=== PATIENT | female | born 1960 | race Caucasian/White ===

== ENCOUNTER 2017-12-19 12:19 | Emergency (ER) | payer OTHER, SELFPAY ==
[~2017-12-19] VITALS: Ht 175.3 cm; Wt 95.2 kg
[~2017-12-19 12:19] MED LIST: ACET325 PO; ALBU90OI6 INH; ALBUTEROL; ATOR20 PO; Aspirin EC81 MG; BUPR150ER PO; BUPR150T2 PO; Bactrim Ds Tab1 EACH PO; CEPH500 PO; CITA20; CITA20 PO; COMBIVENT RESPIM4 GM IH; CYCL10 PO; Citalopram HBr40 MG PO; Crutch1 EACH MISC; DIAZ2 PO; DIAZ5 PO; DOXY100 PO; Desyrel PO; FAMO20 PO; FAMO40 PO; FLUO10 PO; GABA100 PO; GABA300 PO; GUAI600T33 PO; HYDACE5 PO; HYDACE5325 PO; HYDPAM25 PO; IBUHYD PO; IBUP200 PO; IBUP800 PO; IBUPROFEN; KETO10 PO; Keflex500 MG PO; LEFL20 PO; LISI5 PO; MEDR150I IM; MELA3 PO; MELO7.5 PO; METO10 PO; METTREX2.5 PO; Mobic7.5 MG PO; NAPR220 PO; NAPR500 PO; NAPR550 PO; NEOPOLHCSU OT; Norco 5-325 Ta1 EACH PO; ONDA4ODT MM; OXYACE5T PO; OXYB5 PO; OXYB5ER PO; OXYC10TA19; OXYC5 PO; Omeprazole20 M1 PO; PENVK500 PO; PROC10 PO; PROM25 PO; PROP65 PO; Protonix40 MG PO; RESPERIDONE PO; RESTLESS LEG MED; ROPI1 PO; ROPI2 PO; RXCYCL10 PO; RXDIPATR PO; SERT100 PO; SERT50 PO; SULTRIDS PO; TEMA7.5 PO; TRAM50 PO; TRAZ100 PO; VARE1 PO; VICOPROFEN 2001 EACH PO; VITAMIN D 3
[2017-12-19] MEDS ORDERED: LIDO700A20 TOP (13:19)
== END 2017-12-19 13:38 | disposition home or self-care (01) ==
LOC: ER 12:19
DX: S20.211A Contusion of right front wall of thorax, initial encounter (principal); J44.9 Chronic obstructive pulmonary disease, unspecified; F17.200 Nicotine dependence, unspecified, uncomplicated; Z88.5 Allergy status to narcotic agent; Z88.1 Allergy status to other antibiotic agents; Z91.018 Allergy to other foods; Z88.8 Allergy status to other drugs, medicaments and biological substances; Z91.048 Other nonmedicinal substance allergy status; Z79.899 Other long term (current) drug therapy; Z79.82 Long term (current) use of aspirin; W01.0XXA Fall on same level from slipping, tripping and stumbling without subsequent striking against object, initial encounter
CPT/HCPCS: 71046; 99283

== ENCOUNTER 2018-02-26 17:06 | Emergency (ER) | payer OTHER ==
[~2018-02-26] VITALS: Ht 172.7 cm; Wt 90.7 kg
[~2018-02-26 17:06] MED LIST changes: +LIDO700A20 TOP
== END 2018-02-26 19:37 | disposition home or self-care (01) ==
LOC: ER 17:06
DX: S93.402A Sprain of unspecified ligament of left ankle, initial encounter (principal); S83.92XA Sprain of unspecified site of left knee, initial encounter; M79.674 Pain in right toe(s); W10.9XXA Fall (on) (from) unspecified stairs and steps, initial encounter; Z88.5 Allergy status to narcotic agent; Z88.1 Allergy status to other antibiotic agents; Z91.048 Other nonmedicinal substance allergy status; Z79.899 Other long term (current) drug therapy; Z79.82 Long term (current) use of aspirin; J44.9 Chronic obstructive pulmonary disease, unspecified; F17.200 Nicotine dependence, unspecified, uncomplicated
CPT/HCPCS: 73564; 73610; 73630; 99283-25

== ENCOUNTER 2018-04-11 08:37 | Emergency (ER) | payer OTHER ==
[~2018-04-11] VITALS: Ht 172.7 cm; Wt 90.7 kg
[2018-04-11] MEDS ORDERED: Roxicodone5 MG PO (10:34)
[2018-04-11] MEDS ORDERED: Zithromax250 MG PO (10:34)
== END 2018-04-11 11:28 | disposition home or self-care (01) ==
LOC: ER 08:37
DX: S70.02XA Contusion of left hip, initial encounter (principal); R07.89 Other chest pain; J44.9 Chronic obstructive pulmonary disease, unspecified; F17.210 Nicotine dependence, cigarettes, uncomplicated; Z88.5 Allergy status to narcotic agent; Z88.1 Allergy status to other antibiotic agents; Z91.018 Allergy to other foods; Z88.8 Allergy status to other drugs, medicaments and biological substances; Z91.048 Other nonmedicinal substance allergy status; Z79.899 Other long term (current) drug therapy; Z79.82 Long term (current) use of aspirin; W19.XXXA Unspecified fall, initial encounter
CPT/HCPCS: 71101; 73502; 99284-25

== ENCOUNTER 2019-01-15 12:25 | Emergency (ER) | payer MEDICARE ==
[~2019-01-15] VITALS: Ht 172.7 cm; Wt 79.4 kg
[~2019-01-15 12:25] MED LIST changes: +Roxicodone5 MG PO; +Zithromax250 MG PO
[2019-01-15 13:06] LABS: BASOPHILS ABSOLUTE AUTO 0.04 K/mm3 (0.00-0.23); BASOPHILS PERCENT AUTO 1 % (0-2); EOSINOPHILS ABSOLUTE AUTO 0.07 K/mm3 (0.00-0.68); EOSINOPHILS PERCENT AUTO 1 % (0-6); Hematocrit 40.3 % (33.0-51.0); Hemoglobin 12.9 g/dL (11.5-16.0); IMMATURE GRAN ABSOLUTE AUTO 0.02 K/mm3 (0.00-0.10); IMMATURE GRAN PERCENT AUTO 0 % (0-1); LYMPHOCYTES ABSOLUTE AUTO 2.07 K/mm3 (0.84-5.20); LYMPHOCYTES PERCENT AUTO 35 % (21-46); MONOCYTES ABSOLUTE AUTO 0.54 K/mm3 (0.16-1.47); MONOCYTES PERCENT AUTO 9 % (4-13); Mean Corpuscular HGB 30.5 pg (26.0-34.0); Mean Corpuscular Volume 95 fL (80-100); Mean Platelet Volume 9.9 fL (9.1-12.4); NEUTROPHILS ABSOLUTE AUTO 3.23 K/mm3 (1.96-9.15); NEUTROPHILS PERCENT AUTO 54 % (41-73); Platelet Count 278 K/mm3 (150-400); RDW Coefficient Variation 13.7 % (11.7-14.2); RDW Standard Deviation 48.5 fL (35.1-46.3); Red Blood Cell Count 4.23 M/mm3 (3.80-5.20); White Blood Cell Count 5.97 K/mm3 (4.00-11.30)
[2019-01-15 13:28] LABS: Alanine Aminotransfer (ALT/SGP 23 U/L (12-78); Albumin, Blood 3.3 g/dL (3.4-5.0); Albumin/Globulin Ratio 0.8 (0.8-1.8); Alk Phos 105 U/L (50-136); Anion Gap 4 mmol/L (6-16); Aspartate Aminotrans (AST/SGOT 29 U/L (12-37); Bilirubin, Total 0.2 mg/dL (0.1-1.0); Blood Urea Nitrogen 14 mg/dL (8-24); Bun/Creatinine Ratio 19.2 (12.0-20.0); CO2, Blood 29 mmol/L (21-32); Chloride, Blood 107 mmol/L (98-108); Creatinine, Blood 0.73 mg/dL (0.40-1.00); Globulin, Blood 4.2 g/dL (2.2-4.0); Glomerular Filtration Rate >60 (60-); Glucose, Blood 117 mg/dL (70-99); Potassium, Blood 3.8 mmol/L (3.5-5.5); Sodium, Blood 140 mmol/L (136-145); Total Protein, Blood 7.5 g/dL (6.4-8.2)
[2019-01-15] MEDS ORDERED: NAPR550 PO (13:48)
== END 2019-01-15 13:55 | disposition home or self-care (01) ==
LOC: ER 12:25
PROVIDERS: Physician Assistant
DX: S09.90XA Unspecified injury of head, initial encounter (principal); W22.8XXA Striking against or struck by other objects, initial encounter; J44.9 Chronic obstructive pulmonary disease, unspecified; E78.5 Hyperlipidemia, unspecified; F17.210 Nicotine dependence, cigarettes, uncomplicated; Z79.899 Other long term (current) drug therapy; Z79.82 Long term (current) use of aspirin
CPT/HCPCS: 36415; 70450; 80053; 85025; 99284-25

== ENCOUNTER 2019-05-13 20:14 | Emergency (ER) | payer MEDICARE ==
[~2019-05-13] VITALS: Ht 175.3 cm; Wt 86.2 kg
[2019-05-13] MEDS ORDERED: NAPR550 PO (21:13)
== END 2019-05-13 21:27 | disposition home or self-care (01) ==
LOC: ER 20:14
DX: S30.811A Abrasion of abdominal wall, initial encounter (principal); Y04.8XXA Assault by other bodily force, initial encounter; J44.9 Chronic obstructive pulmonary disease, unspecified; E78.5 Hyperlipidemia, unspecified; F17.210 Nicotine dependence, cigarettes, uncomplicated
CPT/HCPCS: 71046; 72170; 96372; 99283-25; J1885

== ENCOUNTER 2019-05-15 14:28 | Emergency (ER) | payer MEDICARE ==
[~2019-05-15] VITALS: Ht 172.7 cm; Wt 86.2 kg
[2019-05-15] MEDS ORDERED: Ultram50 MG PO (16:03)
== END 2019-05-15 16:10 | disposition home or self-care (01) ==
LOC: ER 14:28
DX: S70.212A Abrasion, left hip, initial encounter (principal); J44.9 Chronic obstructive pulmonary disease, unspecified; E78.5 Hyperlipidemia, unspecified; F17.210 Nicotine dependence, cigarettes, uncomplicated; Z88.5 Allergy status to narcotic agent; Z88.1 Allergy status to other antibiotic agents; Z91.018 Allergy to other foods; Z91.048 Other nonmedicinal substance allergy status; Y04.2XXA Assault by strike against or bumped into by another person, initial encounter
CPT/HCPCS: 99282

== ENCOUNTER 2019-06-14 11:06 | Emergency (ER) | payer MEDICARE ==
[~2019-06-14] VITALS: Ht 172.7 cm; Wt 81.7 kg
[~2019-06-14 11:06] MED LIST changes: +Ultram50 MG PO
[2019-06-14] MEDS ORDERED: GABA100 PO (11:20)
[2019-06-14] MEDS ORDERED: Prednisone20 MG PO (12:14)
[2019-06-14] MEDS ORDERED: ROBITUSSIN COU237 ML PO (12:14)
[2019-06-14] MEDS ORDERED: Ventolin/Prove6.7 GM INH (12:14)
[2019-06-14] MEDS ORDERED: Zithromax250 MG PO (12:14)
== END 2019-06-14 12:28 | disposition home or self-care (01) ==
LOC: ER 11:06
DX: J43.9 Emphysema, unspecified (principal); E78.5 Hyperlipidemia, unspecified; M06.9 Rheumatoid arthritis, unspecified; F17.210 Nicotine dependence, cigarettes, uncomplicated; Z88.5 Allergy status to narcotic agent; Z79.899 Other long term (current) drug therapy
CPT/HCPCS: 71046; 94640; 99283-25; J7512

== ENCOUNTER 2020-04-14 13:34 | Emergency (ER) | payer MEDICARE ==
[~2020-04-14] VITALS: Ht 172.7 cm; Wt 72.1 kg
[~2020-04-14 13:34] MED LIST changes: +Prednisone20 MG PO; +ROBITUSSIN COU237 ML PO; +Ventolin/Prove6.7 GM INH
[2020-04-14] MEDS ORDERED: FLUTICASONE PRO16 GM (14:01)
[2020-04-14] MEDS ORDERED: ACYCLOVIR400 MG PO (14:01)
[2020-04-14] MEDS ORDERED: Flagyl500 MG PO (14:01)
[2020-04-14] MEDS ORDERED: FLUC150A PO (14:01)
[2020-04-14 14:36] LABS: BASOPHILS ABSOLUTE AUTO 0.04 K/mm3 (0.00-0.23); BASOPHILS PERCENT AUTO 1 % (0-2); EOSINOPHILS ABSOLUTE AUTO 0.07 K/mm3 (0.00-0.68); EOSINOPHILS PERCENT AUTO 1 % (0-6); Hematocrit 38.4 % (33.0-51.0); Hemoglobin 12.1 g/dL (11.5-16.0); IMMATURE GRAN ABSOLUTE AUTO 0.02 K/mm3 (0.00-0.10); IMMATURE GRAN PERCENT AUTO 0 % (0-1); LYMPHOCYTES PERCENT AUTO 34 % (21-46); MONOCYTES ABSOLUTE AUTO 0.58 K/mm3 (0.16-1.47); MONOCYTES PERCENT AUTO 9 % (4-13); Mean Corpuscular HGB Conc 31.5 g/dL (31.5-36.5); Mean Corpuscular Volume 95 fL (80-100); Mean Platelet Volume 9.5 fL (9.1-12.4); NEUTROPHILS PERCENT AUTO 56 % (41-73); Platelet Count 253 K/mm3 (150-400); RDW Coefficient Variation 13.6 % (11.7-14.2); RDW Standard Deviation 48.8 fL (35.1-46.3); Red Blood Cell Count 4.03 M/mm3 (3.80-5.20); White Blood Cell Count 6.81 K/mm3 (4.00-11.30)
[2020-04-14 14:58] LABS: Alanine Aminotransfer (ALT/SGP 36 U/L (12-78); Albumin, Blood 3.5 g/dL (3.4-5.0); Albumin/Globulin Ratio 0.9 (0.8-1.8); Alk Phos 73 U/L (50-136); Anion Gap 5 mmol/L (6-16); Aspartate Aminotrans (AST/SGOT 29 U/L (12-37); Bilirubin, Total 0.3 mg/dL (0.1-1.0); Blood Urea Nitrogen 14 mg/dL (8-24); Bun/Creatinine Ratio 18.8 (12.0-20.0); CO2, Blood 27 mmol/L (21-32); Calcium, Blood 8.7 mg/dL (8.5-10.1); Chloride, Blood 108 mmol/L (98-108); Creatinine, Blood 0.74 mg/dL (0.40-1.00); Globulin, Blood 3.8 g/dL (2.2-4.0); Glomerular Filtration Rate >60 (60-); Glucose, Blood 96 mg/dL (70-99); Potassium, Blood 3.6 mmol/L (3.5-5.5); Sodium, Blood 140 mmol/L (136-145); Total Protein, Blood 7.3 g/dL (6.4-8.2); Troponin I <0.015 ng/mL (0.000-0.040)
== END 2020-04-14 17:55 | disposition home or self-care (01) ==
LOC: ER 13:34
PROVIDERS: Emergency Medicine
DX: I87.8 Other specified disorders of veins (principal); J43.9 Emphysema, unspecified; F17.210 Nicotine dependence, cigarettes, uncomplicated; Z88.5 Allergy status to narcotic agent; Z88.1 Allergy status to other antibiotic agents; Z91.018 Allergy to other foods; Z88.8 Allergy status to other drugs, medicaments and biological substances; Z91.09 Other allergy status, other than to drugs and biological substances; Z79.899 Other long term (current) drug therapy
CPT/HCPCS: 36415; 71045; 80053; 83880; 84484; 85025; 93005; 93010; 99284-25

== ENCOUNTER → 2020-04-25 | Outpatient (CLI) | payer MEDICARE ==
[~2020-04-25] MED LIST changes: +ACYCLOVIR400 MG PO; +FLUC150A PO; +FLUTICASONE PRO16 GM; +Flagyl500 MG PO
== END | disposition home or self-care (01) ==
LOC: LAB SHORT 18:13 → LAB 18:13
DX: N39.0 Urinary tract infection, site not specified (principal)
CPT/HCPCS: 87077; 87086; 87186

== ENCOUNTER → 2020-09-09 | Outpatient (CLI) | payer MEDICARE ==
[~2020-09-09] MED LIST changes: +FUROSEMIDE20 MG PO; +Lasix20 MG PO; +POTASSIUM CHLORIDE E
[2020-09-09 19:57] LABS: BASOPHILS ABSOLUTE AUTO 0.04 K/mm3 (0.00-0.23); BASOPHILS PERCENT AUTO 1 % (0-2); EOSINOPHILS ABSOLUTE AUTO 0.12 K/mm3 (0.00-0.68); EOSINOPHILS PERCENT AUTO 2 % (0-6); Hematocrit 36.9 % (33.0-51.0); Hemoglobin 11.6 g/dL (11.5-16.0); IMMATURE GRAN ABSOLUTE AUTO 0.01 K/mm3 (0.00-0.10); IMMATURE GRAN PERCENT AUTO 0 % (0-1); LYMPHOCYTES ABSOLUTE AUTO 2.29 K/mm3 (0.84-5.20); LYMPHOCYTES PERCENT AUTO 44 % (21-46); MONOCYTES ABSOLUTE AUTO 0.55 K/mm3 (0.16-1.47); MONOCYTES PERCENT AUTO 11 % (4-13); Mean Corpuscular HGB 29.4 pg (26.0-34.0); Mean Corpuscular HGB Conc 31.4 g/dL (31.5-36.5); Mean Corpuscular Volume 94 fL (80-100); Mean Platelet Volume 9.9 fL (9.1-12.4); NEUTROPHILS ABSOLUTE AUTO 2.19 K/mm3 (1.96-9.15); NEUTROPHILS PERCENT AUTO 42 % (41-73); Platelet Count 304 K/mm3 (150-400); RDW Standard Deviation 44.8 fL (35.1-46.3); Red Blood Cell Count 3.94 M/mm3 (3.80-5.20)
[2020-09-09 20:19] LABS: Alanine Aminotransfer (ALT/SGP 23 U/L (12-78); Albumin, Blood 3.7 g/dL (3.4-5.0); Albumin/Globulin Ratio 0.9 (0.8-1.8); Alk Phos 105 U/L (50-136); Anion Gap 1 mmol/L (6-16); Aspartate Aminotrans (AST/SGOT 23 U/L (12-37); Bilirubin, Total 0.2 mg/dL (0.1-1.0); Blood Urea Nitrogen 15 mg/dL (8-24); Bun/Creatinine Ratio 17.9 (12.0-20.0); CO2, Blood 32 mmol/L (21-32); Calcium, Blood 8.9 mg/dL (8.5-10.1); Chloride, Blood 105 mmol/L (98-108); Creatinine, Blood 0.84 mg/dL (0.40-1.00); Glomerular Filtration Rate >60 (60-); Glucose, Blood 96 mg/dL (70-99); Potassium, Blood 3.8 mmol/L (3.5-5.5); Sodium, Blood 138 mmol/L (136-145); Total Protein, Blood 7.7 g/dL (6.4-8.2)
== END | disposition home or self-care (01) ==
LOC: LAB SHORT 18:04 → PLD 18:04
PROVIDERS: Family Medicine
DX: R07.89 Other chest pain (principal)
CPT/HCPCS: 80053; 83880; 85025

== ENCOUNTER 2020-11-14 21:15 | Emergency (ER) | payer MEDICARE ==
[~2020-11-14] VITALS: Ht 172.7 cm; Wt 72.6 kg
[~2020-11-14 21:15] MED LIST changes: -FUROSEMIDE20 MG PO; -Lasix20 MG PO; -POTASSIUM CHLORIDE E
[2020-11-14 22:39] LABS: BASOPHILS ABSOLUTE AUTO 0.03 K/mm3 (0.00-0.23); BASOPHILS PERCENT AUTO 1 % (0-2); EOSINOPHILS ABSOLUTE AUTO 0.11 K/mm3 (0.00-0.68); EOSINOPHILS PERCENT AUTO 2 % (0-6); Hematocrit 34.4 % (33.0-51.0); Hemoglobin 11.3 g/dL (11.5-16.0); IMMATURE GRAN ABSOLUTE AUTO 0.02 K/mm3 (0.00-0.10); IMMATURE GRAN PERCENT AUTO 0 % (0-1); LYMPHOCYTES ABSOLUTE AUTO 2.32 K/mm3 (0.84-5.20); LYMPHOCYTES PERCENT AUTO 43 % (21-46); MONOCYTES ABSOLUTE AUTO 0.49 K/mm3 (0.16-1.47); MONOCYTES PERCENT AUTO 9 % (4-13); Mean Corpuscular HGB 30.5 pg (26.0-34.0); Mean Corpuscular HGB Conc 32.8 g/dL (31.5-36.5); Mean Corpuscular Volume 93 fL (80-100); Mean Platelet Volume 9.7 fL (9.1-12.4); NEUTROPHILS ABSOLUTE AUTO 2.38 K/mm3 (1.96-9.15); NEUTROPHILS PERCENT AUTO 44 % (41-73); Platelet Count 288 K/mm3 (150-400); RDW Coefficient Variation 13.4 % (11.7-14.2); RDW Standard Deviation 45.8 fL (35.1-46.3); White Blood Cell Count 5.35 K/mm3 (4.00-11.30)
[2020-11-14 22:58] LABS: Alanine Aminotransfer (ALT/SGP 21 U/L (12-78); Albumin, Blood 3.5 g/dL (3.4-5.0); Albumin/Globulin Ratio 0.9 (0.8-1.8); Alk Phos 99 U/L (50-136); Anion Gap 4 mmol/L (6-16); Aspartate Aminotrans (AST/SGOT 30 U/L (12-37); Bilirubin, Total 0.3 mg/dL (0.1-1.0); Blood Urea Nitrogen 19 mg/dL (8-24); CO2, Blood 28 mmol/L (21-32); Calcium, Blood 8.8 mg/dL (8.5-10.1); Chloride, Blood 105 mmol/L (98-108); Creatinine, Blood 0.86 mg/dL (0.40-1.00); Glomerular Filtration Rate >60 (60-); Glucose, Blood 103 mg/dL (70-99); Potassium, Blood 4.1 mmol/L (3.5-5.5); Sodium, Blood 137 mmol/L (136-145); Total Protein, Blood 7.5 g/dL (6.4-8.2); Troponin I <0.015 ng/mL (0.000-0.040)
[2020-11-14] MEDS ORDERED: POTASSIUM CHLORIDE E (23:08)
[2020-11-14] MEDS ORDERED: FUROSEMIDE20 MG PO (23:08)
[2020-11-14] MEDS ORDERED: Lasix20 MG PO (23:21)
== END 2020-11-14 23:40 | disposition home or self-care (01) ==
LOC: ER 21:15
PROVIDERS: Physician Assistant
DX: R60.0 Localized edema (principal); J43.9 Emphysema, unspecified; F17.210 Nicotine dependence, cigarettes, uncomplicated; Z88.5 Allergy status to narcotic agent; Z88.1 Allergy status to other antibiotic agents; Z88.8 Allergy status to other drugs, medicaments and biological substances; Z91.09 Other allergy status, other than to drugs and biological substances; Z79.899 Other long term (current) drug therapy
CPT/HCPCS: 36415; 71046; 80053; 83880; 84484; 85025; 93005; 93010; 96374; 99284-25; J1940

== ENCOUNTER 2021-03-09 14:52 | Emergency (ER) | payer MEDICARE ==
[~2021-03-09] VITALS: Ht 175.3 cm; Wt 77.1 kg
[~2021-03-09 14:52] MED LIST changes: +FUROSEMIDE20 MG PO; +Lasix20 MG PO; +POTASSIUM CHLORIDE E
== END 2021-03-09 16:45 | disposition home or self-care (01) ==
LOC: ER 14:52
DX: S70.11XA Contusion of right thigh, initial encounter (principal); J43.9 Emphysema, unspecified; E78.5 Hyperlipidemia, unspecified; F17.210 Nicotine dependence, cigarettes, uncomplicated; Z88.5 Allergy status to narcotic agent; Z88.1 Allergy status to other antibiotic agents; Z91.018 Allergy to other foods; Z91.048 Other nonmedicinal substance allergy status; Z88.8 Allergy status to other drugs, medicaments and biological substances; Z79.899 Other long term (current) drug therapy; W19.XXXA Unspecified fall, initial encounter
CPT/HCPCS: 93971; 99283-25

== ENCOUNTER 2021-05-05 17:07 | Emergency (ER) | payer MEDICARE ==
[~2021-05-05] VITALS: Ht 170.2 cm; Wt 77.1 kg
[~2021-05-05 17:07] MED LIST changes: +BENZ100A PO; +ONDA4 PO
== END 2021-05-05 20:05 | disposition home or self-care (01) ==
LOC: ER 17:07
DX: U07.1 COVID-19 (principal); Z88.5 Allergy status to narcotic agent; Z88.8 Allergy status to other drugs, medicaments and biological substances; Z91.018 Allergy to other foods; Z91.048 Other nonmedicinal substance allergy status; Z79.899 Other long term (current) drug therapy; E78.5 Hyperlipidemia, unspecified; F17.210 Nicotine dependence, cigarettes, uncomplicated
CPT/HCPCS: 96372; 99283-25; J1885

== ENCOUNTER → 2021-06-25 | Outpatient (CLI) | payer MEDICARE | END | disposition home or self-care (01) | LOC: LAB SHORT 15:38 | DX: R30.0 Dysuria (principal) | CPT/HCPCS: 87077; 87086; 87186 ==

== ENCOUNTER 2021-07-27 03:05 | Day surgery (SDC) | payer MEDICARE | END 2021-07-27 22:44 | disposition home or self-care (01) | LOC: WOUND 03:05 | DX: T23.221A Burn of second degree of single right finger (nail) except thumb, initial encounter (principal); X08.8XXA Exposure to other specified smoke, fire and flames, initial encounter; F17.210 Nicotine dependence, cigarettes, uncomplicated; I10 Essential (primary) hypertension | CPT/HCPCS: G0463 ==

== ENCOUNTER 2021-08-03 03:21 | Day surgery (SDC) | payer MEDICARE | END 2021-08-03 23:30 | disposition home or self-care (01) | LOC: WOUND 03:21 | DX: T23.221D Burn of second degree of single right finger (nail) except thumb, subsequent encounter (principal); X58.XXXD Exposure to other specified factors, subsequent encounter | CPT/HCPCS: G0463 ==

== ENCOUNTER → 2022-02-03 | Outpatient (CLI) | payer MEDICARE, OTHER ==
[2022-02-04 15:11] LABS: HPV 16 Negative (Negative); HPV 18 Negative (Negative); HPV OTHER HR TYPES Positive (Negative)
== END | disposition home or self-care (01) ==
LOC: LAB 10:20 → LAB SHORT 10:20
PROVIDERS: Nurse Practitioner Family
DX: Z11.51 Encounter for screening for human papillomavirus (HPV) (principal); Z12.4 Encounter for screening for malignant neoplasm of cervix
CPT/HCPCS: 87624; G0123

== ENCOUNTER 2022-09-11 18:42 | Emergency (ER) | payer MEDICARE, OTHER ==
[~2022-09-11] VITALS: Ht 172.7 cm; Wt 61.2 kg
[2022-09-11] MEDS ORDERED: Voltaren100 GM TOP (19:54)
== END 2022-09-11 19:55 | disposition home or self-care (01) ==
LOC: ER 18:42
DX: M79.644 Pain in right finger(s) (principal); W10.9XXA Fall (on) (from) unspecified stairs and steps, initial encounter; M19.041 Primary osteoarthritis, right hand; J43.9 Emphysema, unspecified; F17.210 Nicotine dependence, cigarettes, uncomplicated; Z88.5 Allergy status to narcotic agent; Z88.1 Allergy status to other antibiotic agents; Z88.8 Allergy status to other drugs, medicaments and biological substances; Z91.018 Allergy to other foods; Z91.048 Other nonmedicinal substance allergy status; Z79.899 Other long term (current) drug therapy
CPT/HCPCS: 73140; A9270

== ENCOUNTER 2022-10-28 13:39 | Emergency (ER) | payer MEDICARE, OTHER ==
[~2022-10-28] VITALS: Ht 172.7 cm; Wt 61.7 kg
[~2022-10-28 13:39] MED LIST changes: +Voltaren100 GM TOP
[2022-10-28 14:19] LABS: BASOPHILS ABSOLUTE AUTO 0.04 K/mm3 (0.00-0.23); BASOPHILS PERCENT AUTO 1 % (0-2); EOSINOPHILS ABSOLUTE AUTO 0.11 K/mm3 (0.00-0.68); EOSINOPHILS PERCENT AUTO 2 % (0-6); Hematocrit 34.4 % (33.0-51.0); Hemoglobin 11.3 g/dL (11.5-16.0); IMMATURE GRAN ABSOLUTE AUTO 0.01 K/mm3 (0.00-0.10); IMMATURE GRAN PERCENT AUTO 0 % (0-1); LYMPHOCYTES ABSOLUTE AUTO 2.37 K/mm3 (0.84-5.20); LYMPHOCYTES PERCENT AUTO 38 % (21-46); MONOCYTES ABSOLUTE AUTO 0.57 K/mm3 (0.16-1.47); MONOCYTES PERCENT AUTO 9 % (4-13); Mean Corpuscular HGB 29.8 pg (26.0-34.0); Mean Corpuscular HGB Conc 32.8 g/dL (31.5-36.5); Mean Corpuscular Volume 91 fL (80-100); Mean Platelet Volume 9.7 fL (9.1-12.4); NEUTROPHILS ABSOLUTE AUTO 3.17 K/mm3 (1.96-9.15); NEUTROPHILS PERCENT AUTO 51 % (41-73); Platelet Count 270 K/mm3 (150-400); RDW Coefficient Variation 13.6 % (11.7-14.2); RDW Standard Deviation 45.6 fL (35.1-46.3); Red Blood Cell Count 3.79 M/mm3 (3.80-5.20); White Blood Cell Count 6.27 K/mm3 (4.00-11.30)
[2022-10-28 14:21] LABS: Albumin, Blood 3.5 g/dL (3.4-5.0); Albumin/Globulin Ratio 0.9 (0.8-1.8); Bilirubin, Total 0.4 mg/dL (0.1-1.0); Calcium, Blood 8.9 mg/dL (8.5-10.1); Creatinine, Blood 0.86 mg/dL (0.40-1.00); Potassium, Blood 3.7 mmol/L (3.5-5.5); Total Protein, Blood 7.5 g/dL (6.4-8.2)
[2022-10-28] MEDS ORDERED: Prednisone50 MG PO (15:37)
[2022-10-28] MEDS ORDERED: AZIT250 PO (15:37)
[2022-10-28 15:45] VITALS: BP 130/78
== END 2022-10-28 16:22 | disposition home or self-care (01) ==
LOC: ER 13:39
PROVIDERS: Emergency Medicine
DX: J44.0 Chronic obstructive pulmonary disease with (acute) lower respiratory infection (principal); J18.9 Pneumonia, unspecified organism; J44.1 Chronic obstructive pulmonary disease with (acute) exacerbation; Z88.5 Allergy status to narcotic agent; Z88.1 Allergy status to other antibiotic agents; Z88.8 Allergy status to other drugs, medicaments and biological substances; Z79.899 Other long term (current) drug therapy; Z91.048 Other nonmedicinal substance allergy status; E78.5 Hyperlipidemia, unspecified; M06.9 Rheumatoid arthritis, unspecified; F17.210 Nicotine dependence, cigarettes, uncomplicated
CPT/HCPCS: 71045; 80053; 85025; 93005; 93010; 96374; 99284-25; J2930

== ENCOUNTER 2023-01-28 21:14 | Emergency (ER) | payer MEDICARE ==
[~2023-01-28] VITALS: Ht 172.7 cm; Wt 61.2 kg
[2023-01-29 00:28] VITALS: BP 109/68
== END 2023-01-29 00:28 | disposition home or self-care (01) ==
LOC: ER 21:14
DX: S80.812A Abrasion, left lower leg, initial encounter (principal); W20.8XXA Other cause of strike by thrown, projected or falling object, initial encounter; Z88.1 Allergy status to other antibiotic agents; Z88.5 Allergy status to narcotic agent; Z91.048 Other nonmedicinal substance allergy status; Z88.8 Allergy status to other drugs, medicaments and biological substances; Z79.82 Long term (current) use of aspirin; Z79.51 Long term (current) use of inhaled steroids; Z88.2 Allergy status to sulfonamides; Z91.018 Allergy to other foods; Z79.899 Other long term (current) drug therapy; J44.9 Chronic obstructive pulmonary disease, unspecified; E78.5 Hyperlipidemia, unspecified; F17.210 Nicotine dependence, cigarettes, uncomplicated
CPT/HCPCS: 73590; 73610; 96372; 99283-25; J1885

== ENCOUNTER → 2023-01-28 | Outpatient (CLI) | payer MEDICARE, OTHER ==
[~2023-01-28] MED LIST changes: +AZIT250 PO; +Prednisone50 MG PO
== END ==
LOC: LAB SHORT 12:31 → LAB 12:31
DX: J18.9 Pneumonia, unspecified organism (principal)
CPT/HCPCS: 87015; 87116; 87206

== ENCOUNTER → 2023-01-31 | Outpatient (CLI) | payer MEDICARE | END | disposition home or self-care (01) | LOC: LAB SHORT 09:00 → LAB 09:00 | DX: J18.9 Pneumonia, unspecified organism (principal) | CPT/HCPCS: 87070; 87205 ==

== ENCOUNTER → 2023-02-01 | Outpatient (CLI) | payer MEDICARE | LOC: LAB SHORT 17:47 → LAB 17:47 | DX: J18.9 Pneumonia, unspecified organism (principal) | CPT/HCPCS: 87015; 87116; 87206 ==

== ENCOUNTER → 2023-02-04 | Outpatient (CLI) | payer MEDICARE | LOC: LAB SHORT 17:48 → LAB 17:48 | DX: J18.9 Pneumonia, unspecified organism (principal) | CPT/HCPCS: 87015; 87116; 87206 ==

== ENCOUNTER 2023-04-22 06:34 | Day surgery (SDC) | payer MEDICARE, OTHER ==
[~2023-04-22] VITALS: Ht 172.7 cm; Wt 62.8 kg
[~2023-04-22 06:34] MED LIST changes: +ASPIR 8181 M1 PO; +ATOR40TA PO; +Bisoprolol Fumar5 MG PO; +FLOVENT HFA12 GM INH; +NAPR500EC PO; +Nicoderm Cq1 EACH TOP; +TIOT18 INH
[2023-04-22 07:33] LABS: BASOPHILS ABSOLUTE AUTO 0.03 K/mm3 (0.00-0.23); BASOPHILS PERCENT AUTO 1 % (0-2); EOSINOPHILS PERCENT AUTO 2 % (0-6); Hematocrit 36.8 % (33.0-51.0); Hemoglobin 11.9 g/dL (11.5-16.0); IMMATURE GRAN ABSOLUTE AUTO 0.01 K/mm3 (0.00-0.10); IMMATURE GRAN PERCENT AUTO 0 % (0-1); LYMPHOCYTES ABSOLUTE AUTO 1.69 K/mm3 (0.84-5.20); LYMPHOCYTES PERCENT AUTO 35 % (21-46); MONOCYTES ABSOLUTE AUTO 0.52 K/mm3 (0.16-1.47); MONOCYTES PERCENT AUTO 11 % (4-13); Mean Corpuscular HGB 29.8 pg (26.0-34.0); Mean Corpuscular HGB Conc 32.3 g/dL (31.5-36.5); Mean Corpuscular Volume 92 fL (80-100); Mean Platelet Volume 9.5 fL (9.1-12.4); NEUTROPHILS ABSOLUTE AUTO 2.53 K/mm3 (1.96-9.15); NEUTROPHILS PERCENT AUTO 52 % (41-73); Platelet Count 300 K/mm3 (150-400); RDW Coefficient Variation 13.4 % (11.7-14.2); RDW Standard Deviation 45.7 fL (35.1-46.3); White Blood Cell Count 4.88 K/mm3 (4.00-11.30)
[2023-04-22 07:47] LABS: International Normalized Ratio 0.95
[2023-04-22 07:49] LABS: Bun/Creatinine Ratio 19.7 (12.0-20.0); Calcium, Blood 8.9 mg/dL (8.5-10.1); Creatinine, Blood 0.81 mg/dL (0.40-1.00); Potassium, Blood 3.9 mmol/L (3.5-5.5)
--- NOTE | 2023-04-22 08:55 | NUR ---
patient returned to [facility] room. responds appropriately, right radial TR band in place.
[2023-04-22 09:03] VITALS: BP 75/33
[2023-04-22 09:07] VITALS: BP 97/60
--- NOTE | 2023-04-22 09:08 | NUR ---
Dr Mojica in to see patient.
--- NOTE | 2023-04-22 09:49 | NUR ---
patient sitting up. talking to family on phone. eating and drinking fluids.
--- NOTE | 2023-04-22 10:14 | NUR ---
patient siting up eating and visiting with daughter
[2023-04-22 10:30] VITALS: BP 111/59
--- NOTE | 2023-04-22 10:30 | NUR ---
removal f air from radial artery arm band started. site stable
--- NOTE | 2023-04-22 10:45 | NUR ---
patient returned to [facility] recovery room post procedure. responds appropriately. righ radial artery band in place
--- NOTE | 2023-04-22 10:50 | NUR ---
right ac venous site soft and nontender.
[2023-04-22 11:00] VITALS: BP 111/62
[2023-04-22 11:30] VITALS: BP 108/67
--- NOTE | 2023-04-22 12:10 | NUR ---
DR MCINTOSH IN TO ASSESS SITE AND SPEAK TO PATIENT.
--- NOTE | 2023-04-22 12:29 | NUR ---
PATIENT AND DAUGHTER VEBALIZED UNDERSTANDING OF DISCHARGE INSTRUCTIONS AND PRECAUTIONS. RIGHT RADIAL ARM BAND REMOVED. SITE SOFT NO BLEEDING. OLD BRUISE FROM ACCESS ATTEMPT (UNCHANGED). IV SITE DCED WITH CATHETER INTACT. PATIENT DISCHARGED HOME VIA WHEEL CHAIR DAUGHTER DRIVING. ARM SLING AND WRIST BOARD IN PLACE TO RIGHT WRIST/ARM.
== END 2023-04-22 12:10 | disposition home or self-care (01) ==
LOC: MHTC 06:34
PROVIDERS: Internal Medicine Interventional Cardiology
DX: I25.118 Atherosclerotic heart disease of native coronary artery with other forms of angina pectoris (principal); R06.02 Shortness of breath; J44.9 Chronic obstructive pulmonary disease, unspecified; M06.9 Rheumatoid arthritis, unspecified; Z88.5 Allergy status to narcotic agent; Z88.6 Allergy status to analgesic agent; Z91.048 Other nonmedicinal substance allergy status
CPT/HCPCS: 76937; 80048; 85025; 85610; 93458; 99152; 99153; C1769; C1887; C1894; J1644; J2250; J3010; J7030; J7050; Q9967

== ENCOUNTER → 2023-10-12 | Outpatient (CLI) | payer MEDICARE, OTHER ==
[2023-10-20 07:14] LABS: HPV HIGH RISK BY TMA Not Detected; HPV SOURCE Cervical
== END ==
LOC: LAB 18:01 → LAB SHORT 18:01
PROVIDERS: Nurse Practitioner Family
DX: Z12.4 Encounter for screening for malignant neoplasm of cervix (principal)
CPT/HCPCS: 87624; G0123

== ENCOUNTER → 2024-04-02 | Outpatient (CLI) | payer MEDICARE, OTHER | LOC: LAB 18:43 → LAB SHORT 18:43 | DX: R30.0 Dysuria (principal) | CPT/HCPCS: 87077; 87086; 87186 ==

== ENCOUNTER → 2024-06-28 | Outpatient (CLI) | payer MEDICARE, OTHER | LOC: LAB SHORT 18:28 → LAB 18:28 | DX: S01.25XA Open bite of nose, initial encounter (principal); X58.XXXA Exposure to other specified factors, initial encounter | CPT/HCPCS: 87070; 87077; 87147; 87186 ==

== ENCOUNTER 2024-08-12 17:10 | Emergency (ER) | payer MEDICARE, OTHER ==
[~2024-08-12] VITALS: Ht 170.2 cm; Wt 72.6 kg
[2024-08-12 17:37] VITALS: BP 130/78
[2024-08-12] MEDS ORDERED: Ipratropium/Albuterol SulF 2.5-0.5MG/3 ML Amp INH ONE (17:45)
[2024-08-12] MEDS ORDERED: Zithromax250 MG PO (18:44)
[2024-08-12] MEDS ORDERED: Prednisone20 MG PO (18:44)
[2024-08-12] MEDS ORDERED: Azithromycin 250 MG Tab PO ONE (18:45)
[2024-08-12] MEDS ORDERED: PredniSONE 20 MG Tab PO ONE (18:45)
[2024-08-12 18:55] LABS: CORONAVIRUS COVID-19 AG Positive (NEGATIVE); INFLUENZA A AG Negative (NEGATIVE); INFLUENZA B AG Negative (NEGATIVE)
== END 2024-08-12 19:05 | disposition home or self-care (01) ==
LOC: ER 17:10
PROVIDERS: Physician Assistant
DX: J43.9 Emphysema, unspecified (principal); J06.9 Acute upper respiratory infection, unspecified; Z88.5 Allergy status to narcotic agent; Z88.8 Allergy status to other drugs, medicaments and biological substances; Z91.018 Allergy to other foods; Z91.048 Other nonmedicinal substance allergy status; Z79.82 Long term (current) use of aspirin; Z79.899 Other long term (current) drug therapy; F17.210 Nicotine dependence, cigarettes, uncomplicated
CPT/HCPCS: 71046; 87428-QW; 94640; 94664; 99284-25; A9270; J7512

== ENCOUNTER 2024-08-22 12:14 | Emergency (ER) | payer MEDICARE, OTHER ==
[~2024-08-22] VITALS: Ht 170.2 cm; Wt 72.6 kg
[2024-08-22 12:50] LABS: BASOPHILS ABSOLUTE AUTO 0.03 K/mm3 (0.00-0.23); BASOPHILS PERCENT AUTO 1 % (0-2); EOSINOPHILS ABSOLUTE AUTO 0.14 K/mm3 (0.00-0.68); EOSINOPHILS PERCENT AUTO 2 % (0-6); Hematocrit 38.1 % (33.0-51.0); Hemoglobin 12.4 g/dL (11.5-16.0); IMMATURE GRAN ABSOLUTE AUTO 0.04 K/mm3 (0.00-0.10); IMMATURE GRAN PERCENT AUTO 1 % (0-1); LYMPHOCYTES ABSOLUTE AUTO 2.41 K/mm3 (0.84-5.20); LYMPHOCYTES PERCENT AUTO 38 % (21-46); MONOCYTES ABSOLUTE AUTO 0.62 K/mm3 (0.16-1.47); MONOCYTES PERCENT AUTO 10 % (4-13); Mean Corpuscular HGB 30.1 pg (26.0-34.0); Mean Corpuscular HGB Conc 32.5 g/dL (31.5-36.5); Mean Corpuscular Volume 93 fL (80-100); Mean Platelet Volume 9.3 fL (9.1-12.4); NEUTROPHILS PERCENT AUTO 49 % (41-73); Platelet Count 306 K/mm3 (150-400); RDW Coefficient Variation 13.2 % (11.7-14.2); Red Blood Cell Count 4.12 M/mm3 (3.80-5.20); White Blood Cell Count 6.34 K/mm3 (4.00-11.30)
[2024-08-22 13:02] LABS: CORONAVIRUS COVID-19 AG Negative (NEGATIVE); INFLUENZA A AG Negative (NEGATIVE); INFLUENZA B AG Negative (NEGATIVE)
[2024-08-22 13:29] LABS: Albumin, Blood 3.4 g/dL (3.4-5.0); Albumin/Globulin Ratio 0.9 (0.8-1.8); Bilirubin, Total 0.3 mg/dL (0.1-1.0); Bun/Creatinine Ratio 17.8 (12.0-20.0); Calcium, Blood 9.1 mg/dL (8.5-10.1); Creatinine, Blood 0.9 mg/dL (0.40-1.00); Globulin, Blood 3.8 g/dL (2.2-4.0); Total Protein, Blood 7.2 g/dL (6.4-8.2)
[2024-08-22 14:57] VITALS: BP 99/79
[2024-08-22] MEDS ORDERED: MethylPREDNISolone Sod Succ 125 MG Vial IV ONE (15:55)
[2024-08-22] MEDS ORDERED: Pantoprazole Sodium 40 MG Injection IV ONE (15:55)
[2024-08-22] MEDS ORDERED: Albuterol 2.5 MG/3 ML VIAL INH SCH (16:00)
[2024-08-22] MEDS ORDERED: Ipratropium/Albuterol SulF 2.5-0.5MG/3 ML Amp INH ONE (16:00)
[2024-08-22] MEDS ORDERED: ALBU2.5V5 INH (16:01)
[2024-08-22] MEDS ORDERED: OMEP20ER PO (16:01)
[2024-08-22] MEDS ORDERED: PRED20 PO (18:09)
== END 2024-08-22 18:15 | disposition home or self-care (01) ==
LOC: ER 12:14
PROVIDERS: Student in an Organized Health Care Education/Training Program
DX: J43.9 Emphysema, unspecified (principal); E78.5 Hyperlipidemia, unspecified; F17.210 Nicotine dependence, cigarettes, uncomplicated; Z88.5 Allergy status to narcotic agent; Z88.8 Allergy status to other drugs, medicaments and biological substances; Z88.6 Allergy status to analgesic agent; Z91.018 Allergy to other foods; Z91.048 Other nonmedicinal substance allergy status; Z79.82 Long term (current) use of aspirin; Z79.899 Other long term (current) drug therapy
CPT/HCPCS: 71046; 80053; 85025; 87428-QW; 93005; 93010; 94644; 94664; 96374; 96375; 99284-25; J2470; J2919

== ENCOUNTER 2025-06-18 12:21 | Day surgery (SDC) | payer OTHER ==
[~2025-06-18] VITALS: Ht 172.7 cm; Wt 77.3 kg
[~2025-06-18 12:21] MED LIST changes: +ALBU2.5V5 INH; +Balanced Salt Epinephrine Irrigation Solution 500 mL IR SCH; +Moxifloxacin HCL 0.5 MG/0.1 ML 0.4MLSYR RIGHTEYE SCH; +OMEP20ER PO; +Ondansetron 4 MG SoluTab MM PRN; +PHENYLEPHRINE\\TROPICAMIDE\\TETRACAINE OPHTHALMIC DILATING SOLN RIGHTEYE PRN; +PRED20 PO; +Povidone-Iodine 450 DROP/30 ML Solution ONE; +Povidone-Iodine 450 DROP/30 ML Solution RIGHTEYE SCH; +Tetracaine HCl/Pf 0.5% Opth Soln 4 ml ONE
[2025-06-18] MEDS ORDERED: DULO30 PO (12:59)
[2025-06-18] MEDS ORDERED: BUPROPION XL150 M1 PO (12:59)
--- NOTE | 2025-06-18 13:20 | NUR ---
06/18/25 1320 Chiquis Dick HR:83 BP:118/64 RR:18 SP02:97% ON 10L BLOW BY O2
[2025-06-18] MEDS ORDERED: Moxifloxacin HCL 0.5 MG/0.1 ML 0.4MLSYR RIGHTEYE ONE (13:21)
--- NOTE | 2025-06-18 13:21 | NUR ---
06/18/25 1321 Giron Andreina PT REPORTED ANXIETY LEVEL WAS 10/10 PRIOR TO THE ADMINISTRATION OF THE VALIUM 10MG PO @ 1247. TETRACAINE IN AT 1248. PLEDGETT IN AT 1249. PRIOR TO GIVING THE VALIUM DIEUDONNE CABALLERO DID SPEAK TO DR KELLER REGARDING CONCERNS OF NOT BEING ABLE TO FULLY ASSESS LUNG SOUNDS DUE TO PT'S REACTIVE AIRWAY, COPD/EMPHYSEMA. TALKING WOULD CAUSE PATIENT TO START COUGHING AND WHEN PT ASKED TO TAKE DEEP BREATHS IT WOULD TRIGGER PT TO START COUGHING. PT REPORTS THIS IS HER BASELINE AND SPO2 MAINTAINED WNL AT ALL TIMES. PER DR KELLER OKAY TO PROCEED. DURING QUESTIONING PT ANSWERED YES TO METH USE. STATES SHE LAST USED 2 DAYS AGO AND THAT SHE USES EVERY 2 DAYS OR SO USUALLY "DEPENDING ON WHETHER I WANT TO SLEEP OR NOT". THIS INFORMATION WAS GIVEN TO DR KELLER. SHE WENT AND SPOKE TO PATIENT AND ADVISED IT WAS OKAY TO PROCEED. REPORT GIVEN TO DIEUDONNE TORRES.
[2025-06-18 14:06] VITALS: BP 117/76
== END 2025-06-18 13:47 | disposition home or self-care (01) ==
LOC: ORSCSDS 12:21
PROVIDERS: Student in an Organized Health Care Education/Training Program
PROC: 08RJ3JZ Replacement of Right Lens with Synthetic Substitute, Percutaneous Approach (ICD-10-PCS; principal; 2025-06-18 14:00)
DX: H25.813 Combined forms of age-related cataract, bilateral (principal); J44.9 Chronic obstructive pulmonary disease, unspecified; F32.A Depression, unspecified; M79.7 Fibromyalgia; I10 Essential (primary) hypertension; L93.0 Discoid lupus erythematosus; Z79.899 Other long term (current) drug therapy; F17.210 Nicotine dependence, cigarettes, uncomplicated
CPT/HCPCS: A9270; V2632